=== PATIENT | male | born 1935 | race Caucasian/White ===

== ENCOUNTER → 2016-09-24 | Outpatient (CLI) | payer MEDICARE ==
[~2016-09-24] MED LIST: COREG3.125 MG PO; HALFPRIN81 MG PO; PRINIVIL5 MG PO; ZOCOR10 MG PO; ZOCOR20 MG PO
== END | disposition short-term general hospital (02) ==
LOC: CLORTH 10:17
DX: M25.562 Pain in left knee (principal)

== ENCOUNTER → 2017-01-26 | Outpatient (CLI) | payer MEDICARE | END | disposition short-term general hospital (02) | LOC: CLSURG 08:07 | DX: Z48.815 Encounter for surgical aftercare following surgery on the digestive system (principal) ==